=== PATIENT | male | born 1980 | race Caucasian/White ===

== ENCOUNTER → 2018-02-03 | Outpatient (CLI) | payer MEDICAID ==
[~2018-02-03] MED LIST: BUPR-472 PO; ESCI10TA8 PO; ESCI20TA8 PO; PANT40TA65 PO
[2018-02-03 09:35] LABS: PLATELET COUNT, AUTOMATED 215 K/uL (150-450)
[2018-02-03 10:03] LABS: LDL CHOLESTEROL 143 mg/dl
== END ==
LOC: LAB 09:16
PROVIDERS: ATTEND Internal Medicine
DX: R10.13 Epigastric pain (principal); F41.9 Anxiety disorder, unspecified; K27.9 Peptic ulcer, site unspecified, unspecified as acute or chronic, without hemorrhage or perforation; F33.9 Major depressive disorder, recurrent, unspecified; Z82.49 Family history of ischemic heart disease and other diseases of the circulatory system
CPT/HCPCS: 36415; 81001; 82040; 82150; 82247; 82310; 82374; 82435; 82465; 82565; 82947; 83690; 83718; 84075; 84132; 84155; 84295; 84443; 84450; 84460; 84478; 84520; 85025; 86677

== ENCOUNTER 2018-02-22 08:05 | Emergency (ER) | payer MEDICAID ==
[2018-02-22] MEDS ORDERED: PANT20TA27 PO (08:11)
[2018-02-22] MEDS ORDERED: BUPR-126 PO (08:11)
[2018-02-22] MEDS ORDERED: ESCI20TA38 PO (08:11)
[2018-02-22] MEDS ORDERED: ONDANSETRON 4 MG/2 ML VIAL IVP ONE ×2 (08:15→09:25)
[2018-02-22] MEDS ORDERED: NS(*) 0.9% 1000 ML BAG 1,000 ML IV ONE (08:15)
--- NOTE | 2018-02-22 08:17 | ER Report ---
History and Physical Time Seen By MD: 08:15 Hx. of Stated Complaint: N/V SINCE 0600 HPI/ROS CHIEF COMPLAINT: vomiting, abdominal pain HISTORY OF PRESENT ILLNESS: Pt admits to etoh binge drinking (admitted alcoholic who had quit for 2 mo prior to new years), has been drinking 151 rum since new years, last drink this am. Noted abd pain x 2 days, epigastric, left side, radiating to left , constant, sharp, gradually worsening, assoc with black stool, nausea and non bloody vomiting since 0600. Pt has had multiple episodes of vomiting this am, notes fever as well. Hx pancreatitis without known complications, hx of ventral hernia repair in nov 05. REVIEW OF SYSTEMS: Constitutional: above Eyes: No discharge. ENT: No sore throat. Cardiovascular: No chest pain, no palpitations. Respiratory: No cough, no shortness of breath. Gastrointestinal: above Genitourinary: decreased urination Musculoskeletal: No back pain. Skin: new abd bruising Neurological: mild dee Remainder of the 14 system rev: Yes Allergies: Coded Allergies: Penicillins (Verified Allergy, Unknown, 02/22/18) Home Meds Active Scripts Chlordiazepoxide Hcl (CHLORDIAZEPOXIDE HCL) 10 Mg Capsule, 10 MG PO Q12H for Anxiety, #4 CAPSULE Prov:TATY COOK MD 02/22/18 Ondansetron Hcl (ZOFRAN) 4 Mg Tablet, 4 MG PO Q8H for Nausea, #10 TAB Prov:TATY COOK MD 02/22/18 Escitalopram Oxalate (ESCITALOPRAM OXALATE) 20 Mg Tablet, 20 MG PO QDAY, #30 TAB 6 Refills Prov:DARRIN BOOTHE MD 02/05/18 Pantoprazole Sodium (PANTOPRAZOLE SODIUM) 40 Mg Tablet., 40 MG PO QDAY, #30 TAB.SR 3 Refills Prov:DARRIN BOOTHE MD 01/21/18 Bupropion Hcl (WELLBUTRIN XL) 150 Mg Tab.er.24h, 150 MG PO QDAY, #30 TAB 3 Re fills Prov:DARRIN BOOTHE MD 01/21/18 Reported Medications Pantoprazole Sodium (PANTOPRAZOLE SODIUM) 20 Mg Tablet.dr, 20 MG PO QDAY, TAB.SR 02/22/18 Bupropion Hcl (WELLBUTRIN SR) 150 Mg Tablet.er, 150 MG PO QDAY, TAB 02/22/18 Escitalopram Oxalate (LEXAPRO) 20 Mg Tablet, 10 MG PO QDAY, TAB 02/22/18 Reviewed Nurses Notes: Yes Smoking Status: Current: Every Day Smoker Constitutional Vital Sign - Last 24 Hours 02/22/18 02/22/18 08:08 11:00 Temp 98.4 Pulse 97 70 Resp 20 20 B/P (MAP) 170/101 125/79 (94) Pulse Ox 95 94 O2 Delivery Room Air Physical Exam General Appearance: The patient is alert, has no immediate need for airway protection and no signs of toxicity. Eyes: Pupils equal and round no pallor or injection. ENT, Mouth: Mucous membranes are moist. Respiratory: There are no retractions, lungs are clear to auscultation. Cardiovascular: tachycardia Gastrointestinal: epigastric ttp with mild distension, left sided abd ttp. 3x4cm ecchymosis x 2 lateral to umbilicus. Surgical incisions from sep/hernia repair are distinct from new ecchymosis and are intact - testes nl lie, nl cremasterics, no inguinal hernia. Mild ttp throughout inguinal ligament Neurological: alert, oriented x 4, moves all ext, coopeartive Skin: mild diaphoresis Musculoskeletal: Extremities are nontender, nonswollen and have full range of motion. DIFFERENTIAL DIAGNOSIS: After history and physical exam differential diagnosis was considered for pancreatic hemorrhage/pancreatitis, acute hepatic failure, other etiology of acute abdomen, etoh withdrawal Medical Decision Making Data Points Result Diagram: 02/22/18 0816 02/22/18 0816 Laboratory Hematology Test 02/22/18 00:00 02/22/18 08:16 02/22/18 08:40 02/22/18 10:41 Prothrombin Time 12.6 seconds (12.0-14.4) Prothromb Time International Ratio 0.94 Activated Partial Thromboplast Time 27 seconds (23-35) Phosphorus Level 2.7 mg/dl (2.5-4.5) Magnesium Level 1.7 mg/dl (1.7-2.2) Serum Alcohol 11 mg/dl Red Blood Count 5.65 M/uL (4.00-5.60) Mean Corpuscular Volume 88.4 fL (80.0-96.0) Mean Corpuscular Hemoglobin 30.4 pg (26.0-33.0) Mean Corpuscular Hemoglobin Concent 34.4 g/dL (32.0-36.0) Red Cell Distribution Width 13.2 % (11.5-14.5) Mean Platelet Volume 8.1 fL (7.2-11.1) Neutrophils (%) (Auto) 51.0 % (39.4-72.5) Lymphocytes (%) (Auto) 35.6 % (17.6-49.6) Monocytes (%) (Auto) 10.6 % (4.1-12.4) Eosinophils (%) (Auto) 2.2 % (0.4-6.7) Basophils (%) (Auto) 0.6 % (0.3-1.4) Nucleated RBC Relative Count (auto) 0.0 /100WBC Neutrophils # (Auto) 4.0 K/uL (2.0-7.4) Lymphocytes # (Auto) 2.8 K/uL (1.3-3.6) Monocytes # (Auto) 0.8 K/uL (0.3-1.0) Eosinophils # (Auto) 0.2 K/uL (0.0-0.5) Basophils # (Auto) 0.0 K/uL (0.0-0.1) Nucleated RBC Absolute Count (auto) 0.00 K/uL Sodium Level 141 mmol/L (137-145) Potassium Level 3.3 mmol/L (3.5-5.0) Chloride Level 103 mmol/L (98-107) Carbon Dioxide Level 24 mmol/L (22-30) Blood Urea Nitrogen 7 mg/dl (9-21) Creatinine 1.10 mg/dl (0.66-1.25) Glomerular Filtration Rate Calc > 60.0 Random Glucose 108 mg/dl (75-110) Calcium Level 9.2 mg/dl (8.4-10.2) Total Bilirubin 1.5 mg/dl (0.2-1.3) Aspartate Amino Transf (AST/SGOT) 56 U/L (0-35) Alanine Aminotransferase (ALT/SGPT) 73 U/L (0-56) Alkaline Phosphatase 106 U/L (0-126) Total Protein 7.6 g/dl (6.3-8.2) Albumin 4.4 g/dl (3.5-5.0) Lipase 272 U/L (23-300) Lactate Dehydrogenase 602 U/L (0-654) Urine Color Straw Urine Clarity Clear Urine pH 5.0 pH (4.8-9.5) Urine Specific [place] 1.026 Urine Protein Negative mg/dL (NEGATIVE) Urine Glucose (UA) Negative mg/dL (NEGATIVE) Urine Ketones Negative mg/dL (NEGATIVE) Urine Blood Negative (NEGATIVE) Urine Nitrite Negative (NEGATIVE) Urine Bilirubin Negative (NEGATIVE) Urine Urobilinogen Negative mg/dL (0.2-1.9) Urine Leukocyte Esterase Negative (NEGATIVE) Urine RBC <1 /HPF (0-2/HPF) Urine WBC 1 /HPF (0-5/HPF) Urine Squamous Epithelial Cells Moderate /LPF (</=FEW) Urine Transitional Epithelial Cells Few /LPF (NONE-FEW) Urine Bacteria Negative /HPF (NONE-FEW) Urine Hyaline Casts Few /LPF (NONE-FEW) Urine Mucus Few /HPF (NONE-FEW) Urine Opiates Screen Positive Urine Barbiturates Screen Negative Ur Tricyclic Antidepressants Screen Negative Urine Phencyclidine Screen Negative Urine Amphetamines Screen Negative Urine Benzodiazepines Screen Negative Urine Cocaine Screen Negative Urine Cannabinoids Screen Positive Test 02/22/18 10:45 Lactate 1.4 mmol/L (0.7-2.1) Chemistry Test 02/22/18 00:00 02/22/18 08:16 02/22/18 08:40 02/22/18 10:41 Prothrombin Time 12.6 seconds (12.0-14.4) Prothromb Time International Ratio 0.94 Activated Partial Thromboplast Time 27 seconds (23-35) Phosphorus Level 2.7 mg/dl (2.5-4.5) Magnesium Level 1.7 mg/dl (1.7-2.2) Serum Alcohol 11 mg/dl White Blood Count 7.8 k/uL (4.5-11.0) Red Blood Count 5.65 M/uL (4.00-5.60) Hemoglobin 17.2 g/dL (14.0-18.0) Hematocrit 49.9 % (42.0-52.0) Mean Corpuscular Volume 88.4 fL (80.0-96.0) Mean Corpuscular Hemoglobin 30.4 pg (26.0-33.0) Mean Corpuscular Hemoglobin Concent 34.4 g/dL (32.0-36.0) Red Cell Distribution Width 13.2 % (11.5-14.5) Platelet Count 251 K/uL (150-450) Mean Platelet Volume 8.1 fL (7.2-11.1) Neutrophils (%) (Auto) 51.0 % (39.4-72.5) Lymphocytes (%) (Auto) 35.6 % (17.6-49.6) Monocytes (%) (Auto) 10.6 % (4.1-12.4) Eosinophils (%) (Auto) 2.2 % (0.4-6.7) Basophils (%) (Auto) 0.6 % (0.3-1.4) Nucleated RBC Relative Count (auto) 0.0 /100WBC Neutrophils # (Auto) 4.0 K/uL (2.0-7.4) Lymphocytes # (Auto) 2.8 K/uL (1.3-3.6) Monocytes # (Auto) 0.8 K/uL (0.3-1.0) Eosinophils # (Auto) 0.2 K/uL (0.0-0.5) Basophils # (Auto) 0.0 K/uL (0.0-0.1) Nucleated RBC Absolute Count (auto) 0.00 K/uL Glomerular Filtration Rate Calc > 60.0 Calcium Level 9.2 mg/dl (8.4-10.2) Total Bilirubin 1.5 mg/dl (0.2-1.3) Aspartate Amino Transf (AST/SGOT) 56 U/L (0-35) Alanine Aminotransferase (ALT/SGPT) 73 U/L (0-56) Alkaline Phosphatase 106 U/L (0-126) Total Protein 7.6 g/dl (6.3-8.2) Albumin 4.4 g/dl (3.5-5.0) Lipase 272 U/L (23-300) Lactate Dehydrogenase 602 U/L (0-654) Urine Color Straw Urine Clarity Clear Urine pH 5.0 pH (4.8-9.5) Urine Specific [place] 1.026 Urine Protein Negative mg/dL (NEGATIVE) Urine Glucose (UA) Negative mg/dL (NEGATIVE) Urine Ketones Negative mg/dL (NEGATIVE) Urine Blood Negative (NEGATIVE) Urine Nitrite Negative (NEGATIVE) Urine Bilirubin Negative (NEGATIVE) Urine Urobilinogen Negative mg/dL (0.2-1.9) Urine Leukocyte Esterase Negative (NEGATIVE) Urine RBC <1 /HPF (0-2/HPF) Urine WBC 1 /HPF (0-5/HPF) Urine Squamous Epithelial Cells Moderate /LPF (</=FEW) Urine Transitional Epithelial Cells Few /LPF (NONE-FEW) Urine Bacteria Negative /HPF (NONE-FEW) Urine Hyaline Casts Few /LPF (NONE-FEW) Urine Mucus Few /HPF (NONE-FEW) Urine Opiates Screen Positive Urine Barbiturates Screen Negative Ur Tricyclic Antidepressants Screen Negative Urine Phencyclidine Screen Negative Urine Amphetamines Screen Negative Urine Benzodiazepines Screen Negative Urine Cocaine Screen Negative Urine Cannabinoids Screen Positive Test 02/22/18 10:45 Lactate 1.4 mmol/L (0.7-2.1) Coagulation Test 02/22/18 00:00 Prothrombin Time 12.6 seconds Prothromb Time International Ratio 0.94 Activated Partial Thromboplast Time 27 seconds Toxicology Test 02/22/18 00:00 02/22/18 10:41 Serum Alcohol 11 mg/dl Urine Opiates Screen Positive Urine Barbiturates Screen Negative Ur Tricyclic Antidepressants Screen Negative Urine Phencyclidine Screen Negative Urine Amphetamines Screen Negative Urine Benzodiazepines Screen Negative Urine Cocaine Screen Negative Urine Cannabinoids Screen Positive Urinalysis Test 02/22/18 10:41 Urine Color Straw Urine Clarity Clear Urine pH 5.0 pH (4.8-9.5) Urine Specific [place] 1.026 Urine Protein Negative mg/dL (NEGATIVE) Urine Glucose (UA) Negative mg/dL (NEGATIVE) Urine Ketones Negative mg/dL (NEGATIVE) Urine Blood Negative (NEGATIVE) Urine Nitrite Negative (NEGATIVE) Urine Bilirubin Negative (NEGATIVE) Urine Urobilinogen Negative mg/dL (0.2-1.9) Urine Leukocyte Esterase Negative (NEGATIVE) Urine RBC <1 /HPF (0-2/HPF) Urine WBC 1 /HPF (0-5/HPF) Urine Squamous Epithelial Cells Moderate /LPF (</=FEW) Urine Transitional Epithelial Cells Few /LPF (NONE-FEW) Urine Bacteria Negative /HPF (NONE-FEW) Urine Hyaline Casts Few /LPF (NONE-FEW) Urine Mucus Few /HPF (NONE-FEW) EKG/Imaging EKG Interpretation 12 lead EKG: Rhythm: Normal sinus rhythm [place]: Normal QRS: Normal ST segments: Normal Monitor Interpretation: Normal Sinus Rhythm ED Course/Re-evaluation ED Course Pt presents with vomiting, abdominal pain, concerning for intra-abd pathology and/or as complication of etoh use/withdrawal. Pt iniitially sig uncomfortable with abd ttp, however ED evaluation ultimately unremarkable for emergent pathology. As no e/o complication of pancreatitis, pud, or other emergent etiology, symptoms likely due to gastritis from sig etoh intake. Pt sig improved on d/c, without sgs of etoh w/d; states he wants to again quit; I offered one trial of librium but pt aware we will not offer this in the future if he returns to drinking. He understands SRP's. Decision to Disposition Date: Feb 22, 2018 Decision to Disposition Time: 11:15 Depart Departure Latest Vital Signs Vital Signs Date Time Temp Pulse Resp B/P (MAP) Pulse Ox O2 Delivery O2 Flow Rate FiO2 02/22/18 11:00 70 20 125/79 (94) 94 Room Air 02/22/18 08:08 98.4 Impression: Primary Impression: Vomiting Additional Impressions: Abdominal pain Alcohol abuse Condition: Improved Disposition: HOME OR SELF-CARE Referrals: DARRIN BOOTHE MD (PCP) New Scripts Chlordiazepoxide Hcl (CHLORDIAZEPOXIDE HCL) 10 Mg Capsule 10 MG PO Q12H for Anxiety, #4 CAPSULE Prov: TATY COOK MD 02/22/18 Ondansetron Hcl (ZOFRAN) 4 Mg Tablet 4 MG PO Q8H for Nausea, #10 TAB Prov: TATY COOK MD 02/22/18 Patient Instructions: Abdominal Pain (ED), Acute Nausea and Vomiting (ED), Alcohol Dependence (ED) Additional Instructions: As we discussed, you may take librium as needed for alcohol withdrawal symptoms, and zofran for nausea. Do NOT drink alcohol while on this medication. This is the only time we will be able to attempt this outpatient management of withdrawal. Your CT did show some inflammation but this was nonsepcific; therefore please return immediately if you are not tolerating fluids or for any concerns. Problem Qualifiers Primary Impression: Vomiting Vomiting type: unspecified Vomiting Intractability: non-intractable Nausea presence: with nausea Qualified Codes: R11.2 - Nausea with vomiting, unspecified Additional Impressions: Abdominal pain Abdominal location: generalized Qualified Codes: R10.84 - Generalized abdominal pain TATY COOK MD Feb 22, 2018 08:17
[2018-02-22 08:26] LABS: PLATELET COUNT, AUTOMATED 251 K/uL (150-450)
[2018-02-22] MEDS ORDERED: LR(*) 1000 ML BAG 2,585.49 ML IV ONE (08:35)
[2018-02-22] MEDS ORDERED: MORPHINE 4 MG/ML SDV IVP ONE (08:35)
[2018-02-22 08:39] LABS: INR 0.94
[2018-02-22] MEDS ORDERED: IOPAMIDOL 76% 75 ML INFUS BTL 75 ML ONE (08:49)
--- NOTE | 2018-02-22 09:08 | EKG ---
[place] [facility] [place] NAME: MENDEZ JOHNSON : [id number] MR: [id number] V: [id number] EXAM DATE: ORDERING PHYSICIAN: TATY COOK TECHNOLOGIST: FRANCO Test Reason : VIMITING Blood Pressure : / mmHG Vent. Rate : 065 BPM Atrial Rate : 065 BPM P-R Int : 132 ms QRS Dur : 084 ms QT Int : 428 ms P-R-T Axes : 054 076 066 degrees QTc Int : 445 ms Normal sinus rhythm Septal infarct , age undetermined Abnormal ECG No previous ECGs available Confirmed by Ld Wright [id number] on 02/22/2018 1:26:59 PM Referred By: JOEY Confirmed By:Ld Davison
--- NOTE | 2018-02-22 09:41 | RADIOLOGY IMAGING REPORT ---
[place] [facility] [place] Jaskaran Mccormick : 1980 MR: [id number] V: [id number] EXAM DATE: ORDERING PHYSICIAN: TATY COOK TECHNOLOGIST: Location: [facility] - [place] Patient: Jaskaran Mccormick : 1980 Visit/Account:[id number] Date of Sevice: 02/22/2018 ADDENDUM #1 There is slight thickening of several segments of small bowel. These are typically seen in the settin g of infectious or inflammatory enteritis given the patient's age. Ischemic colitis is felt less like ly given absence of atrial fibrillation per provider as well as minimal atherosclerotic changes. Results were called to Dr. TATY COOK at 02/22/2018 10:19 AM. Report Dictated By: Broderick Michelle DO at 02/22/2018 10:18 AM Report E-Signed By: Broderick Michelle DO at 02/22/2018 10:[address] abdomen and pelvis with IV contrast Indication: Epigastric pain, flank ecchymosis Comparison: None available. . Technique: Helical CT images were obtained through the abdomen and pelvis during injection of nonio jenelle iodinated intravenous contrast. Reformatted coronal and sagittal images were also obtained. Contrast: 75 ml of Isovue-370 IV contrast. One of the following dose optimization techniques was u tilized in the performance of this exam: Automated exposure control; adjustment of the mA and/or kV a ccording to the patient's size; or use of an iterative reconstruction technique. Specific details c an be referenced in the facility's radiology CT exam operational policy. Findings: Lower lung olmos: Limited views lower lung field are unremarkable. Liver: No focal parenchymal abnormality of the liver. Biliary: The patient is status post cholecystectomy. Pancreas: Normal appearance. Spleen: Normal appearance. Adrenal glands: Unremarkable. Kidneys / retroperitoneum: No evidence of nephrolithiasis or hydronephrosis. There is a small punctat e radiodensity within the distal right ureter seen on series 2, image 125/159. This is not seen on th e corresponding coronal sagittal views and is likely artifactual. No adjacent hydroureter or periuret eral fat stranding Bowel / peritoneum / mesenteries: The visualized small and large bowel appear unremarkable. The appen corie is normal. There is mild haziness overlying the mesentery along the ventral upper abdomen (series 2, image 57/159). Lymph node assessment: No pathologic adenopathy identified. Pelvic structures: Appear unremarkable. Vessels: Minimal atherosclerosis. Musculoskeletal / Body wall: No acute or aggressive osseous abnormality. IMPRESSION: 1. Minimal ventral mesenteric haziness along the upper abdomen which is nonspecific and can be incide ntal; however, these findings can also be seen in the setting of panniculitis. 2. Status post cholecystectomy. Report Dictated By: Broderick Michelle DO at 02/22/2018 9:20 AM Report E-Signed By: Broderick Michelle DO at 02/22/2018 9:37 AM WSN:[id number]
[2018-02-22 11:00] VITALS: BP 125/79
[2018-02-22] MEDS ORDERED: ONDA4TAB97 PO (11:12)
[2018-02-22] MEDS ORDERED: CHL10 PO (11:12)
== END 2018-02-22 11:25 | disposition home or self-care (01) ==
LOC: ER 08:10
DX: R11.2 Nausea with vomiting, unspecified (principal); R10.84 Generalized abdominal pain; F10.10 Alcohol abuse, uncomplicated; Y90.0 Blood alcohol level of less than 20 mg/100 ml
CPT/HCPCS: 74177; 80305; 81001; 83605; 83615; 83690; 83735; 84100; 85025; 85610; 85730; 86850; 86900; 86901; 93005; 96361; 96374; 96375; 96376; 99284; G0480; J2270; J2405; J7030; J7120; Q9967; 80320; 82040; 82247; 82310; 82374; 82435; 82565; 82947; 84075; 84132; 84155; 84295; 84450; 84460; 84520